=== PATIENT | male | born 1965 ===

== ENCOUNTER 2017-11-28 20:18 | Emergency (ER) | payer SELFPAY ==
[2017-11-28 20:28] VITALS: BP 149/82; PULSE 67; TEMP 98.6; O2SAT 97
--- NOTE | 2017-11-28 22:00 | C.PDOC ---
Time Seen by Provider: 11/28/17 20:57 Chief Complaint (Nursing): Upper Extremity Problem/Injury Past Medical History Vital Signs: Last Vital Signs Temp 98.6 F 11/28/17 20:26 Pulse 67 11/28/17 20:26 Resp 16 11/28/17 20:26 BP 149/82 11/28/17 20:26 Pulse Ox 97 11/28/17 20:26 - Social History Hx Alcohol Use: Yes Hx Substance Use: No ED Course And Treatment O2 Sat by Pulse Oximetry: 97 Medical Decision Making Medical Decision Making: pt with decreased pain adter toradol. advised to return to hospital to apply for primitivo care tomorrow,. and f/u med clinic. Disposition Counseled Patient/Family Regarding: Diagnosis, Need For Followup, Rx Given - Disposition Referrals: [facility] at [facility] [Outside] Disposition: HOME/ ROUTINE Disposition Time: 22:01 Condition: IMPROVED Additional Instructions: Por favor tome Naproxen segn lo recetado- con comida por la maana y por la noche. Si el dolor se repite elisabeth el da, tome Tylenol. [place] relajante muscular a la hora de acostarse; y puede brodie hasta emilee dosis en un da si est en casa, sin conducir ni trabajar, ya que le produce somnolencia. Please take Naproxen as prescribed- with food in morning and at night time. If pain recurs in daytime, take Tylenol. Take muscle relaxant at bedtime; and may take up to three doses in a day if at home, not driving or working, since it make you drowsy. Prescriptions: Cyclobenzaprine [Cyclobenzaprine HCl] 10 mg PO Q8 #9 tab Naproxen 500 mg PO BID #20 tab Instructions: Musculoskeletal Pain (ED) Forms: Gen Discharge Inst Cameroonian, [employer] (Cameroonian) - Clinical Impression Clinical Impression: Muscle strain
[2017-11-28 22:14] VITALS: RESP 20
== END 2017-11-28 22:14 | disposition home or self-care (01) ==
LOC: C.ER 20:18
DX: T14.8XXA Other injury of unspecified body region, initial encounter (principal); X58.XXXA Exposure to other specified factors, initial encounter
CPT/HCPCS: 96372; 99284; J1885

== ENCOUNTER 2018-06-08 12:20 | Emergency (ER) | payer OTHER ==
[2018-06-08 12:29] VITALS: BMI 27.9
[2018-06-08 12:30] VITALS: O2SAT 97
[2018-06-08] MEDS ORDERED: Sodium Chloride 0.9% 1,000 ML IV ONE (13:04)
[2018-06-08] MEDS ORDERED: Sodium Chloride 0.9% 1,000 ML ONE (13:22)
[2018-06-08 13:30] LABS: BASO # 0.1 K/uL (0.0-0.2); BASO % 0.9 % (0.0-2.0); EOS # 0.1 K/uL (0.0-0.7); EOS % 1.8 % (0.0-4.0); HEMOGLOBIN 14.9 g/dL (12.0-18.0); LYMPH # 2.2 K/uL (1.0-4.3); LYMPH % 40.7 % (20.0-40.0); MEAN CORPUSCULAR HEMOGLOBIN 30.8 pg (27.0-31.0); MEAN CORPUSCULAR HGB CONC 35.4 g/dL (33.0-37.0); MEAN PLATELET VOLUME 7.4 fL (7.2-11.7); MONO # 0.4 K/uL (0.0-0.8); MONO % 6.4 % (0.0-10.0); NEUT # 2.7 K/uL (1.8-7.0); NEUT % 50.2 % (50.0-75.0); NRBC % 0.1 % (0.0-2.0); RBC 4.83 Mil/uL (4.40-5.90); RED CELL DISTRIBUTION WIDTH 13.1 % (11.5-14.5); WHITE BLOOD COUNT 5.4 K/uL (4.8-10.8)
[2018-06-08 14:25] LABS: ALB/GLOB RATIO 1.5 (1.0-2.1); ALBUMIN 4.4 g/dL (3.5-5.0); ALT/SGPT 38 U/L (21-72); AST/SGOT 24 U/L (17-59); BLOOD UREA NITROGEN 13 mg/dL (9-20); CALCIUM 9.4 mg/dl (8.6-10.4); GFR NON-AFRICAN AMERICAN > 60
--- NOTE | 2018-06-08 14:42 | C.PDOC ---
History Of Present Illness 52 yo male came into the ER today for high sugar. 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 Notes he feels well today. Denies sob. chest pain, lightheadedness, polyuria, polydypsia , or leg swelling. Pt notes he ate tacos this morning. 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 Physical Exam - Physical Exam Appears: Well, Non-toxic, No Acute Distress Skin: Normal Color, Warm, Dry Head: Atraumatic, Normacephalic Eye(s): bilateral: Normal Inspection, PERRL, EOMI Nose: Normal Neck: Normal, Normal ROM, Supple Chest: Symmetrical Cardiovascular: Rhythm Regular Respiratory: Normal Breath Sounds Gastrointestinal/Abdominal: Normal Exam, Soft, No Tenderness Back: Normal Inspection Extremity: Normal ROM Neurological/Psych: Oriented x3, Normal Speech, Normal Cognition ED Course And Treatment - Laboratory Results Result Diagrams: 06/08/18 13:19 06/08/18 13:19 O2 Sat by Pulse Oximetry: 97 Progress Note: LAbs reviewed. Nonfasting glucose 268. No DKA. Pt remains asymptomatic. Pt was instructed liefstyle changes and discussed risks of untreated DM . Compensation Administrator used. PT verbalized understanding. Instructed strict followup with clinic this week for re-evaluation. Case discussed with Dr Solorzano, agreed upon plan and treatment. Disposition - Disposition Referrals: [facility] at [facility] [Outside] Disposition: HOME/ ROUTINE Disposition Time: 14:45 Condition: STABLE Additional Instructions: Start strict diet and exercise. Eat fruits, vegetables, and lean protein. Do not eat sugar, high salt food or fatty foods. Exercise regularly. You will need to followup with your doctor and get additional blood work regularly. Comience kayla dieta estricta y ejercicio. Coma frutas, verduras y protenas magras. No coma azcar, alimentos con alto contenido de gina o alimentos grasos. Hacer ejercicio regularmente. Tendr que consultar con durán mdico y obtener an lisis de arthur adicionales con regularidad. Instructions: Prediabetes (DC) Forms: [facility] (Kenyan) Print Language: ANGOLAN - Clinical Impression Clinical Impression: Hyperglycemia
[2018-06-08 15:07] VITALS: BP 118/79; PULSE 65; RESP 16; TEMP 97.8
== END 2018-06-08 15:07 | disposition home or self-care (01) ==
LOC: C.ER 12:20
DX: R73.9 Hyperglycemia, unspecified (principal)
CPT/HCPCS: 80053; 82009; 82948; 85025; 99283; J7030

== ENCOUNTER 2018-09-25 20:42 | Emergency (ER) | payer OTHER ==
[2018-09-25 20:42] VITALS: BMI 27.9
[2018-09-25 21:07] VITALS: BP 150/89; PULSE 77; RESP 20; TEMP 98; O2SAT 97
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
[2018-09-25] MEDS ORDERED: Naproxen 550 mg Tab PO STA (21:41)
[2018-09-25] MEDS ORDERED: Naproxen 550 mg Tab PO ONE (21:49)
--- NOTE | 2018-09-26 11:07 | RAD ---
Date of service: 09/25/2018 PROCEDURE: Cervical Spine Radiographs. HISTORY: Pain. COMPARISON: None available. FINDINGS: BONES: Alignment maintained. No fracture. Dens Intact. Trace anterior superior spondylotic ridging C5 and C6 noted DISC SPACES: Normal. SOFT TISSUES: Normal. No prevertebral soft tissue swelling. OTHER FINDINGS: None. IMPRESSION: No fracture or subluxation. Trace anterior superior spondylotic ridging
== END 2018-09-25 22:57 | disposition home or self-care (01) ==
LOC: C.ER 20:42
DX: S16.1XXA Strain of muscle, fascia and tendon at neck level, initial encounter (principal); V49.49XA Driver injured in collision with other motor vehicles in traffic accident, initial encounter; Y92.410 Unspecified street and highway as the place of occurrence of the external cause